=== PATIENT | female | born 1960 | race Caucasian/White ===

== ENCOUNTER 2023-02-22 14:27 | Emergency (ER) | payer SELFPAY ==
[~2023-02-22] VITALS: Ht 167.6 cm; Wt 61.2 kg
[2023-02-22 14:45] VITALS: BP_SYST 135; PULSE 98; RESP 13; TEMP 97.7; O2SAT 99
--- NOTE | 2023-02-22 14:49 | NUR ---
Placed in room 8 . Placed on certified [employer] travel [employer], blood pressure machine and pulse oximeter. To gown for exam. Side rails up. Report given to
--- NOTE | 2023-02-22 15:00 | NUR ---
MD DR PARKER AT BEDSIDE
--- NOTE | 2023-02-22 15:00 | NUR ---
PT BIB SELF AWAKE AND ALERT AOX4, NO SOB. PT C/O BACK PAIN 10/10 FOR PAST 10 MONTHS. PT HAS HISTORY OF BACK PAIN AND BACK SX.
[2023-02-22] MEDS ORDERED: KETOROLAC TROMETHAMINE 60 MG/2 ML VIAL IM ONE (15:15)
[2023-02-22 15:47] VITALS: BP_SYST 125; PULSE 74; RESP 14; TEMP 97.3; O2SAT 94
--- NOTE | 2023-02-22 15:51 | NUR ---
Patient given written and verbal discharge instructions and verbalizes understanding. ER MD DR PARKER discussed with patient the results and treatment provided. Patient in stable condition. ID arm band removed. Patient educated on pain management and to follow up with PMD. Pain Scale 8/10. Opportunity for questions provided and answered. Medication side effect fact sheet provided.
== END 2023-02-22 15:51 | disposition home or self-care (01) ==
LOC: SED 14:27
DX: S22.070A Wedge compression fracture of T9-T10 vertebra, initial encounter for closed fracture (principal); G89.29 Other chronic pain; M54.50 Low back pain, unspecified; Z79.899 Other long term (current) drug therapy; V89.2XXA Person injured in unspecified motor-vehicle accident, traffic, initial encounter; Y93.89 Activity, other specified; Y92.89 Other specified places as the place of occurrence of the external cause; Y99.8 Other external cause status
CPT/HCPCS: 99283; 96374; J1885